=== PATIENT | male | born 1985 | race Hispanic/Latino ===

== ENCOUNTER 2023-03-11 05:40 | Emergency (ER) | payer BC ==
[~2023-03-11] VITALS: Ht 172.7 cm; Wt 86.2 kg
[2023-03-11 05:48] VITALS: BP 126/74
[2023-03-11] MEDS ORDERED: IBUPROFEN 800 MG TAB PO ONE (06:00)
[2023-03-11] MEDS ORDERED: IBUP-1493 PO (06:29)
== END 2023-03-11 06:59 | disposition home or self-care (01) ==
LOC: EDH 05:40
DX: S62.300A Unspecified fracture of second metacarpal bone, right hand, initial encounter for closed fracture (principal); F17.200 Nicotine dependence, unspecified, uncomplicated; W22.01XA Walked into wall, initial encounter; Y93.89 Activity, other specified; Y92.89 Other specified places as the place of occurrence of the external cause; Y99.8 Other external cause status
CPT/HCPCS: 29125; 73130